=== PATIENT | female | born 1975 | race Caucasian/White ===

== ENCOUNTER 2024-08-16 18:48 | Inpatient (IN) | payer BC ==
[2024-08-16 19:47] LABS: Basophils % (A) 0 %; Eosinophils # (A) 0.1 k/uL (0-0.7); Eosinophils % (A) 1 %; HCT 40.1 % (34.0-46.0); HGB 13.2 gm/dL (11.4-16.0); Lymphocytes # (A) 1.7 k/uL (1.0-4.8); Lymphocytes % (A) 20 %; MCH 28.9 pg (25.0-35.0); MCV 87.8 fL (80.0-100.0); Mean Platelet Volume 9.7; Monocytes # (A) 0.6 k/uL (0-1.0); Monocytes % (A) 7 %; Neutrophils # (A) 5.7 k/uL (1.3-7.7); Neutrophils % (A) 69 %; Platelet Count 226 k/uL (150-450); RBC 4.56 m/uL (3.80-5.40); RDW 12.2 % (11.5-15.5); WBC 8.3 k/uL (3.8-10.6)
[2024-08-16 19:59] LABS: ALT 13 U/L (4-34); AST 19 U/L (14-36); African American GFR (CKD) >90 (>60 ml/min/1.73 sqM); Albumin 4.3 g/dL (3.5-5.0); Alkaline Phosphatase 51 U/L (38-126); Anion Gap 8 mmol/L; Blood Urea Nitrogen 12 mg/dL (7-17); Calcium 9.3 mg/dL (8.4-10.2); Carbon Dioxide 27 mmol/L (22-30); Chloride 102 mmol/L (98-107); Glucose 89 mg/dL (74-99); Non-African American GFR(CKD) >90 (>60 ml/min/1.73 sqM); Potassium 4.3 mmol/L (3.5-5.1); Sodium 137 mmol/L (137-145); Total Bilirubin 1.7 mg/dL (0.2-1.3); Total Protein 7.3 g/dL (6.3-8.2)
--- NOTE | 2024-08-16 20:17 | ED ---
Nausea/Vomiting/Diarrhea HPI - General Source: patient, family, RN notes reviewed Mode of arrival: wheelchair Limitations: no limitations <Jane Milton - Last Filed: 08/16/24 23:58> <Mary Lynch - Last Filed: 08/18/24 03:56> - General Chief complaint: Nausea/Vomiting/Diarrhea Stated complaint: vomiting, dizziness, abdominal pain Time Seen by Provider: 08/16/24 19:40 - History of Present Illness Initial comments: 49-year-old female with a history of hypothyroidism presented to emergency department for chief complaint of nausea, vomiting, and generalized not feeling well over the past 4 to 5 days. She denies emesis, urinary bowel habit changes. Admits to epigastric abdominal discomfort prior to emesis. Denies fevers, chills, cough, rhinorrhea, congestion. Endorses heart palpitations and intermittent difficulty in breathing. Patient states that she was evaluated yesterday at [facility] where she was discharged home in stable condition. Of note, patient recently discontinued taking SSRI medication, Prozac, on Thursday with concern that this medication may have been causing her symptoms. previous cholecystectomy (Jane Milton) - Related Data Home Medications Medication Instructions Recorded Confirmed FLUoxetine HCL [PROzac] 20 mg PO DAILY 08/17/24 08/17/24 Levothyroxine Sodium [Synthroid] 112 mcg PO DAILY 08/17/24 08/17/24 Allergies Allergy/AdvReac Type Severity Reaction Status Date / Time codeine Allergy Nausea & Verified 08/17/24 06:50 Vomiting Review of Systems ROS Other: All systems not noted in ROS Statement are negative. <Jane Milton - Last Filed: 08/16/24 23:58> ROS Other: All systems not noted in ROS Statement are negative. <Mary Lynch - Last Filed: 08/18/24 03:56> ROS Statement: Those systems with pertinent positive or pertinent negative responses have been documented in the HPI. Past Medical History Past Medical History: GERD/Reflux, Thyroid Disorder Additional Past Medical History / Comment(s): Aide's, Past Surgical History: Section, Cholecystectomy Additional Past Surgical History / Comment(s): neck surgery Past Psychological History: No Psychological Hx Reported Smoking Status: Never smoker Past Alcohol Use History: None Reported Past Drug Use History: None Reported <Jane Milton - Last Filed: 08/16/24 23:58> General Exam Limitations: no limitations General appearance: alert, in no apparent distress Neck exam: Present: normal inspection. Absent: tenderness, meningismus, lym phadenopathy Respiratory exam: Present: normal lung sounds bilaterally. Absent: respiratory distress, wheezes, rales, rhonchi, stridor Cardiovascular Exam: Present: regular rate, normal rhythm, normal heart sounds. Absent: systolic murmur, diastolic murmur, rubs, gallop, clicks GI/Abdominal exam: Present: soft, normal bowel sounds. Absent: distended, tenderness, guarding, rebound, rigid Extremities exam: Present: normal inspection, full ROM, normal capillary refill. Absent: tenderness, pedal edema, joint swelling, calf tenderness Back exam: Present: normal inspection. Absent: CVA tenderness (R), CVA tenderness (L) <Jane Milton - Last Filed: 08/16/24 23:58> Course <Jane Milton - Last Filed: 08/16/24 23:58> Vital Signs 08/16/24 18:51 Temperature 97.9 F Pulse Rate 61 Respiratory 18 Rate Blood Pressure 156/84 O2 Sat by Pulse 100 Oximetry - Reevaluation(s) Reevaluation #1: In reevaluation after I was informed by nursing staff the patient refused pain medication. She is laying on her side resting comfortably. Discussed with patient and inquired why she refused pain medication. She states that she felt like she had hunger pains and is still refusing pain medication. Abdominal examination complete is unremarkable. In a send patient states that she is concerned that she has thoughts today of wanting to harm herself. She is currently endorsing suicidal ideation. Denies homicidal ideation. Denies aud itory visual hallucinations. Patient has been medically cleared for EPS evaluation. 08/16/24 22:50 (Jane Milton) Medical Decision Making - Lab Data Result diagrams: 08/16/24 19:37 08/16/24 19:37 <Jane Milton - Last Filed: 08/16/24 23:58> - Lab Data Result diagrams: 08/16/24 19:37 08/16/24 19:37 <Mary Lynch - Last Filed: 08/18/24 03:56> - Medical Decision Making Was pt. sent in by a medical professional or institution (, PA, ORTHOPEDIC CAST SPECIALIST, urgent care, hospital, or fci...) When possible be specific @ -[No] Did you speak to anyone other than the patient for history (EMS, parent, family, police, friend...)? What history was obtained from this source @ -[No] Did you review nursing and triage notes (agree or disagree)? Why? @ -[I reviewed and agree with nursing and triage notes] Were old charts reviewed (outside hosp., previous admission, EMS record, old EKG, old radiological studies, urgent care reports/EKG's, fci records)? Report findings @ -[No old charts were reviewed] Differential Diagnosis (chest pain, altered mental status, abdominal pain women, abdominal pain men, vaginal bleeding, weakness, fever, dyspnea, syncope, headache, dizziness, GI bleed, back pain, seizure, CVA, palpatations, mental health, musculoskeletal)? @ -Differential Weakness: Hypoglycemia, shock, sepsis, hyponatremia, anemia, infection, VA, ETOH, adverse medicine reaction, overdose, stroke, this is not meant to be an all-inclusive list. EKG interpreted by me (3pts min.). @ -completed at X-rays interpreted by me (1pt min.). @ -[None done] CT interpreted by me (1pt min.). @ -[None done] U/S interpreted by me (1pt. min.). @ -[None done] What testing was considered but not performed or refused? (CT, X-rays, U/S, labs)? Why? @ -[None] What meds were considered but not given or refused? Why? @ -[None] Did you discuss the management of the patient with other professionals (professionals i.e. , CINDA, ORTHOPEDIC CAST SPECIALIST, lab, RT, psych nurse, social work supervisor, distribution clerk, teacher, affirmative action officer, pillowcase turner)? Give summary @ -[No] Was smoking cessation discussed for >3mins.? @ -[No] Was critical care preformed (if so, how long)? @ -[No] Were there social determinants of health that impacted care today? How? (Homelessness, low income, unemployed, alcoholism, drug addiction, trans portation, low edu. Level, literacy, decrease access to med. care, mcc, rehab)? @ -[No] Was there de-escalation of care discussed even if they declined (Discuss DNR or withdrawal of care, Hospice)? DNR status @ -[No] What co-morbidities impacted this encounter? (DM, HTN, Smoking, COPD, CAD, Cancer, CVA, ARF, Chemo, Hep., AIDS, mental health diagnosis, sleep apnea, morbid obesity)? @ -[None] Was patient admitted / discharged? Hospital course, mention meds given and route, prescriptions, significant lab abnormalities, going to OR and other pertinent info. @ -49-year-old female presenting with nausea, vomiting, or palpitations. On arrival patient is resting comfortably. Vitals are stable. She is provided with IV fluids and dose of Zofran for nausea. lab testing including CBC, CMP, coagulation, troponin, D-dimer, urinalysis unremarkable. hCG negative. TSH within normal. I was alerted by nursing staff that patient was still experiencing nausea provided with dose of Reglan. On reevaluation, patient is endorsing suicidal ideation. She is clear for EPS evaluation. patient is signed out to Mary Lynch PA-C pending EPS evaluation and disposition. Undiagnosed new problem with uncertain prognosis? @ -[No] Drug Therapy requiring intensive monitoring for toxicity (Heparin, Nitro, Insulin, Cardizem)? @ -[No] Were any procedures done? @ -[No] Diagnosis/symptom? @ -[default] Acute, or Chronic, or Acute on Chronic? @ -[default] Uncomplicated (without systemic symptoms) or Complicated (systemic symptoms)? @ -[default] Side effects of treatment? @ -[No] Exacerbation, Progression, or Severe Exacerbation? @ -[No] Poses a threat to life or bodily function? How? (Chest pain, USA, VA, pneumonia, PE, COPD, DKA, ARF, appy, cholecystitis, CVA, Diverticulitis, Homicidal, Suicidal, threat to staff... and all critical care pts) @ -[No] (Jane Milton) 49-year-old female signed out to me by Jane Milton PA-C. Patient was evaluated by EPS. She expressed suicidal ideation with plan. Patient will be admitted for psychiatric care. Diagnosis/symptom? @Suicidal ideation Acute, or Chronic, or Acute on Chronic? @Acute Uncomplicated (without systemic symptoms) or Complicated (systemic symptoms)? @Complicated Side effects of treatment? @None Exacerbation, Progression, or Severe Exacerbation] @No Poses a threat to life or bodily function? @Yes (Mary Lynch) - Lab Data Lab Results 08/16/24 08/16/24 08/16/24 Range/Units 19:37 19:37 19:37 WBC 8.3 (3.8-10.6) k/uL RBC 4.56 (3.80-5.40) m/uL Hgb 13.2 (11.4-16.0) gm/dL Hct 40.1 (34.0-46.0) % MCV 87.8 (80.0-100.0) fL MCH 28.9 (25.0-35.0) pg MCHC 33.0 (31.0-37.0) g/dL RDW 12.2 (11.5-15.5) % Plt Count 226 (150-450) k/uL MPV 9.7 Neutrophils % 69 % Lymphocytes % 20 % Monocytes % 7 % Eosinophils % 1 % Basophils % 0 % Neutrophils # 5.7 (1.3-7.7) k/uL Lymphocytes # 1.7 (1.0-4.8) k/uL Monocytes # 0.6 (0-1.0) k/uL Eosinophils # 0.1 (0-0.7) k/uL Basophils # 0.0 (0-0.2) k/uL PT (10.0-12.5) sec INR (<1.2) APTT (22.0-30.0) sec D-Dimer (<0.60) mg/L FEU Sodium 137 (137-145) mmol/L Potassium 4.3 (3.5-5.1) mmol/L Chloride 102 (98-107) mmol/L Carbon Dioxide 27 (22-30) mmol/L Anion Gap 8 mmol/L BUN 12 (7-17) mg/dL Creatinine 0.64 (0.52-1.04) mg/dL Est GFR (CKD-EPI)AfAm >90 (>60 ml/min/1.73 sqM) Est GFR (CKD-EPI)NonAf >90 (>60 ml/min/1.73 sqM) Glucose 89 (74-99) mg/dL Calcium 9.3 (8.4-10.2) mg/dL Total Bilirubin 1.7 H (0.2-1.3) mg/dL AST 19 (14-36) U/L ALT 13 (4-34) U/L Alkaline Phosphatase 51 (38-126) U/L Troponin I (0.000-0.034) ng/mL Total Protein 7.3 (6.3-8.2) g/dL Albumin 4.3 (3.5-5.0) g/dL Amylase 67 (30-110) U/L Lipase 70 (23-300) U/L TSH (0.465-4.680) mIU/L Urine Color Urine Appearance (Clear) Urine pH (5.0-8.0) Ur Specific [place] (1.001-1.035) Urine Protein (Negative) Urine Glucose (UA) (Negative) Urine Ketones (Negative) Urine Blood (Negative) Urine Nitrite (Negative) Urine Bilirubin (Negative) Urine Urobilinogen (<2.0) mg/dL Ur Leukocyte Esterase (Negative) Urine RBC (0-5) /hpf Urine WBC (0-5) /hpf Ur Squamous Epith Cells (0-4) /hpf Urine Bacteria (None) /hpf Urine Mucus (None) /hpf Urine HCG, Qual (Not Detectd) Urine Opiates Screen (NotDetected) Ur Oxycodone Screen (NotDetected) Urine Methadone Screen (NotDetected) Ur Barbiturates Screen (NotDetected) U Tricyclic Antidepress (NotDetected) Ur Phencyclidine Scrn (NotDetected) Ur Amphetamines Screen (NotDetected) U Methamphetamines Scrn (NotDetected) U Benzodiazepines Scrn (NotDetected) Urine Cocaine Screen (NotDetected) U Marijuana (THC) Screen (NotDetected) SARS-CoV-2 (PCR) (Not Detectd) 08/16/24 08/16/24 08/16/24 Range/Units 19:37 20:23 20:23 WBC (3.8-10.6) k/uL RBC (3.80-5.40) m/uL Hgb (11.4-16.0) gm/dL Hct (34.0-46.0) % MCV (80.0-100.0) fL MCH (25.0-35.0) pg MCHC (31.0-37.0) g/dL RDW (11.5-15.5) % Plt Count (150-450) k/uL MPV Neutrophils % % Lymphocytes % % Monocytes % % Eosinophils % % Basophils % % Neutrophils # (1.3-7.7) k/uL Lymphocytes # (1.0-4.8) k/uL Monocytes # (0-1.0) k/uL Eosinophils # (0-0.7) k/uL Basophils # (0-0.2) k/uL PT (10.0-12.5) sec INR (<1.2) APTT (22.0-30.0) sec D-Dimer (<0.60) mg/L FEU Sodium (137-145) mmol/L Potassium (3.5-5.1) mmol/L Chloride (98-107) mmol/L Carbon Dioxide (22-30) mmol/L Anion Gap mmol/L BUN (7-17) mg/dL Creatinine (0.52-1.04) mg/dL Est GFR (CKD-EPI)AfAm (>60 ml/min/1.73 sqM) Est GFR (CKD-EPI)NonAf (>60 ml/min/1.73 sqM) Glucose (74-99) mg/dL Calcium (8.4-10.2) mg/dL Total Bilirubin (0.2-1.3) mg/dL AST (14-36) U/L ALT (4-34) U/L Alkaline Phosphatase (38-126) U/L Troponin I (0.000-0.034) ng/mL Total Protein (6.3-8.2) g/dL Albumin (3.5-5.0) g/dL Amylase (30-110) U/L Lipase (23-300) U/L TSH 4.640 (0.465-4.680) mIU/L Urine Color Light Yellow Urine Appearance Clear (Clear) Urine pH 6.0 (5.0-8.0) Ur Specific [place] 1.015 (1.001-1.035) Urine Protein Negative (Negative) Urine Glucose (UA) Negative (Negative) Urine Ketones 1+ H (Negative) Urine Blood Trace H (Negative) Urine Nitrite Negative (Negative) Urine Bilirubin Negative (Negative) Urine Urobilinogen <2.0 (<2.0) mg/dL Ur Leukocyte Esterase Negative (Negative) Urine RBC 1 (0-5) /hpf Urine WBC 2 (0-5) /hpf Ur Squamous Epith Cells 2 (0-4) /hpf Urine Bacteria Rare H (None) /hpf Urine Mucus Few H (None) /hpf Urine HCG, Qual Not Detected (Not Detectd) Urine Opiates Screen (NotDetected) Ur Oxycodone Screen (NotDetected) Urine Methadone Screen (NotDetected) Ur Barbiturates Screen (NotDetected) U Tricyclic Antidepress (NotDetected) Ur Phencyclidine Scrn (NotDetected) Ur Amphetamines Screen (NotDetected) U Methamphetamines Scrn (NotDetected) U Benzodiazepines Scrn (NotDetected) Urine Cocaine Screen (NotDetected) U Marijuana (THC) Screen (NotDetected) SARS-CoV-2 (PCR) (Not Detectd) 08/16/24 08/16/24 08/16/24 Range/Units 20:23 20:39 20:39 WBC (3.8-10.6) k/uL RBC (3.80-5.40) m/uL Hgb (11.4-16.0) gm/dL Hct (34.0-46.0) % MCV (80.0-100.0) fL MCH (25.0-35.0) pg MCHC (31.0-37.0) g/dL RDW (11.5-15.5) % Plt Count (150-450) k/uL MPV Neutrophils % % Lymphocytes % % Monocytes % % Eosinophils % % Basophils % % Neutrophils # (1.3-7.7) k/uL Lymphocytes # (1.0-4.8) k/uL Monocytes # (0-1.0) k/uL Eosinophils # (0-0.7) k/uL Basophils # (0-0.2) k/uL PT 12.7 H (10.0-12.5) sec INR 1.2 H (<1.2) APTT 24.1 (22.0-30.0) sec D-Dimer <0.17 (<0.60) mg/L FEU Sodium (137-145) mmol/L Potassium (3.5-5.1) mmol/L Chloride (98-107) mmol/L Carbon Dioxide (22-30) mmol/L Anion Gap mmol/L BUN (7-17) mg/dL Creatinine (0.52-1.04) mg/dL Est GFR (CKD-EPI)AfAm (>60 ml/min/1.73 sqM) Est GFR (CKD-EPI)NonAf (>60 ml/min/1.73 sqM) Glucose (74-99) mg/dL Calcium (8.4-10.2) mg/dL Total Bilirubin (0.2-1.3) mg/dL AST (14-36) U/L ALT (4-34) U/L Alkaline Phosphatase (38-126) U/L Troponin I <0.012 (0.000-0.034) ng/mL Total Protein (6.3-8.2) g/dL Albumin (3.5-5.0) g/dL Amylase (30-110) U/L Lipase (23-300) U/L TSH (0.465-4.680) mIU/L Urine Color Urine Appearance (Clear) Urine pH (5.0-8.0) Ur Specific [place] (1.001-1.035) Urine Protein (Negative) Urine Glucose (UA) (Negative) Urine Ketones (Negative) Urine Blood (Negative) Urine Nitrite (Negative) Urine Bilirubin (Negative) Urine Urobilinogen (<2.0) mg/dL Ur Leukocyte Esterase (Negative) Urine RBC (0-5) /hpf Urine WBC (0-5) /hpf Ur Squamous Epith Cells (0-4) /hpf Urine Bacteria (None) /hpf Urine Mucus (None) /hpf Urine HCG, Qual (Not Detectd) Urine Opiates Screen Not Detected (NotDetected) Ur Oxycodone Screen Not Detected (NotDetected) Urine Methadone Screen Not Detected (NotDetected) Ur Barbiturates Screen Not Detected (NotDetected) U Tricyclic Antidepress Not Detected (NotDetected) Ur Phencyclidine Scrn Not Detected (NotDetected) Ur Amphetamines Screen Not Detected (NotDetected) U Methamphetamines Scrn Not Detected (NotDetected) U Benzodiazepines Scrn Not Detected (NotDetected) Urine Cocaine Screen Not Detected (NotDetected) U Marijuana (THC) Screen Detected H (NotDetected) SARS-CoV-2 (PCR) (Not Detectd) 08/17/24 Range/Units 04:11 WBC (3.8-10.6) k/uL RBC (3.80-5.40) m/uL Hgb (11.4-16.0) gm/dL Hct (34.0-46.0) % MCV (80.0-100.0) fL MCH (25.0-35.0) pg MCHC (31.0-37.0) g/dL RDW (11.5-15.5) % Plt Count (150-450) k/uL MPV Neutrophils % % Lymphocytes % % Monocytes % % Eosinophils % % Basophils % % Neutrophils # (1.3-7.7) k/uL Lymphocytes # (1.0-4.8) k/uL Monocytes # (0-1.0) k/uL Eosinophils # (0-0.7) k/uL Basophils # (0-0.2) k/uL PT (10.0-12.5) sec INR (<1.2) APTT (22.0-30.0) sec D-Dimer (<0.60) mg/L FEU Sodium (137-145) mmol/L Potassium (3.5-5.1) mmol/L Chloride (98-107) mmol/L Carbon Dioxide (22-30) mmol/L Anion Gap mmol/L BUN (7-17) mg/dL Creatinine (0.52-1.04) mg/dL Est GFR (CKD-EPI)AfAm (>60 ml/min/1.73 sqM) Est GFR (CKD-EPI)NonAf (>60 ml/min/1.73 sqM) Glucose (74-99) mg/dL Calcium (8.4-10.2) mg/dL Total Bilirubin (0.2-1.3) mg/dL AST (14-36) U/L ALT (4-34) U/L Alkaline Phosphatase (38-126) U/L Troponin I (0.000-0.034) ng/mL Total Protein (6.3-8.2) g/dL Albumin (3.5-5.0) g/dL Amylase (30-110) U/L Lipase (23-300) U/L TSH (0.465-4.680) mIU/L Urine Color Urine Appearance (Clear) Urine pH (5.0-8.0) Ur Specific [place] (1.001-1.035) Urine Protein (Negative) Urine Glucose (UA) (Negative) Urine Ketones (Negative) Urine Blood (Negative) Urine Nitrite (Negative) Urine Bilirubin (Negative) Urine Urobilinogen (<2.0) mg/dL Ur Leukocyte Esterase (Negative) Urine RBC (0-5) /hpf Urine WBC (0-5) /hpf Ur Squamous Epith Cells (0-4) /hpf Urine Bacteria (None) /hpf Urine Mucus (None) /hpf Urine HCG, Qual (Not Detectd) Urine Opiates Screen (NotDetected) Ur Oxycodone Screen (NotDetected) Urine Methadone Screen (NotDetected) Ur Barbiturates Screen (NotDetected) U Tricyclic Antidepress (NotDetected) Ur Phencyclidine Scrn (NotDetected) Ur Amphetamines Screen (NotDetected) U Methamphetamines Scrn (NotDetected) U Benzodiazepines Scrn (NotDetected) Urine Cocaine Screen (NotDetected) U Marijuana (THC) Screen (NotDetected) SARS-CoV-2 (PCR) Not Detected (Not Detectd) Disposition <Jane Milton - Last Filed: 08/16/24 23:58> <Mary Lynch - Last Filed: 08/18/24 03:56> Clinical Impression: Suicidal ideation Disposition: TRANSFER TO PSYCH HOSP/UNIT Condition: Stable
[2024-08-16 20:41] LABS: Appearance,Urine Clear (Clear); Bacteria,Urine Rare /hpf; Bilirubin,Urine Negative (Negative); Blood,Urine Trace (Negative); Color,Urine Light Yellow; Glucose,Urine (UA) Negative (Negative); Ketones,Urine 1+ (Negative); Leukocyte Esterase,Urine Negative (Negative); Mucus,Urine Few /hpf; Nitrite,Urine Negative (Negative); Protein,Urine Negative (Negative); RBC,Urine 1 /hpf (0-5); Specific Gravity,Urine 1.015 (1.001-1.035); Squamous Epithelial Cell,Urine 2 /hpf (0-4); Urobilinogen,Urine <2.0 mg/dL (<2.0); WBC,Urine 2 /hpf (0-5)
[2024-08-16] MEDS: ONDANSETRON 4 MG/2 ML VIAL IVP STA (20:41)
[2024-08-16] MEDS: SODIUM CHLORIDE 0.9% 1,000 ML IV STA (20:43)
[2024-08-16 20:56] LABS: Amylase 67 U/L (30-110); Lipase 70 U/L (23-300)
[2024-08-16 21:04] LABS: INR 1.2 (<1.2); Partial Thromboplastin Time 24.1 sec (22.0-30.0); Prothrombin Time 12.7 sec (10.0-12.5)
[2024-08-16] MEDS: METOCLOPRAMIDE 5 MG/ML 2 ML VIAL IVP STA (21:37)
[2024-08-16] MEDS: KETOROLAC 15 MG/ML 1 ML VIAL IVP STA (22:27)
[2024-08-17 02:15] LABS: Amphetamine Screen,Urine Not Detected (NotDetected); Barbiturate Screen,Urine Not Detected (NotDetected); Benzodiazepines Screen,Urine Not Detected (NotDetected); Cocaine Screen,Urine Not Detected (NotDetected); Methadone Screen, Urine Not Detected (NotDetected); Opiate Screen,Urine Not Detected (NotDetected); Oxycodone Screen, Urine Not Detected (NotDetected); Phencyclidine Screen,Urine Not Detected (NotDetected); Tricyclic Antidepressant,Urine Not Detected (NotDetected); Urn Cannabinoid Scrn Detected (NotDetected)
[2024-08-17] MEDS: ONDANSETRON 4 MG/2 ML VIAL IVP STA (02:20)
[2024-08-17] MEDS: METOCLOPRAMIDE 10 MG TAB PO STA (05:07)
[2024-08-17] MEDS ORDERED: ACETAMINOPHEN TAB 325 MG TAB PO PRN (06:13)
[2024-08-17] MEDS ORDERED: IBUPROFEN 600 MG TAB PO PRN (06:13)
[2024-08-17] MEDS ORDERED: OLANZapine 10 MG TAB PO PRN (06:13)
[2024-08-17] MEDS ORDERED: MAGNESIUM HYDROXIDE 2,400 MG/30 ML CUP PO PRN (06:13)
[2024-08-17] MEDS ORDERED: hydrOXYzine HCL 50 MG/ML 1 ML VIAL IM PRN (06:13)
[2024-08-17] MEDS ORDERED: OLANZapine 10 MG VIAL IM PRN (06:13)
[2024-08-17] MEDS ORDERED: hydrOXYzine pamoate 25 MG CAP PO PRN (06:16)
[2024-08-17] MEDS: LEVOTHYROXINE 112 MCG TAB PO SCH (06:45)
[2024-08-17] MEDS ORDERED: ONDANSETRON ODT 4 MG TAB PO PRN (07:26)
[2024-08-17] MEDS: MAG HYDROX/AL HYDROX/SIMETH 355 ML BOTTLE PO PRN (09:23)
[2024-08-17] MEDS ORDERED: OLANZapine 5 MG TAB PO PRN (11:51)
--- NOTE | 2024-08-17 12:40 | P.HP ---
Psychiatric H&P - . H&P Date: 08/17/24 History & Physical: Allergies Allergy/AdvReac Type Severity Reaction Status Date / Time codeine Allergy Nausea & Verified 08/17/24 06:50 Vomiting Vital Signs Temp 98.6 F 08/17/24 09:00 Pulse 77 08/17/24 09:00 Resp 16 08/17/24 09:00 BP 145/69 08/17/24 09:00 Pulse Ox 98 08/17/24 06:58 FiO2 Intake & Output 08/16/24 08/17/24 08/17/24 18:59 06:59 18:59 Weight 77.111 kg 78.046 kg Laboratory Last Values WBC 8.3 k/uL (3.8-10.6) 08/16/24 19:37 RBC 4.56 m/uL (3.80-5.40) 08/16/24 19:37 Hgb 13.2 gm/dL (11.4-16.0) 08/16/24 19:37 Hct 40.1 % (34.0-46.0) 08/16/24 19:37 MCV 87.8 fL (80.0-100.0) 08/16/24 19:37 MCH 28.9 pg (25.0-35.0) 08/16/24 19:37 MCHC 33.0 g/dL (31.0-37.0) 08/16/24 19:37 RDW 12.2 % (11.5-15.5) 08/16/24 19:37 Plt Count 226 k/uL (150-450) 08/16/24 19:37 MPV 9.7 08/16/24 19:37 Neutrophils % 69 % 08/16/24 19:37 Lymphocytes % 20 % 08/16/24 19:37 Monocytes % 7 % 08/16/24 19:37 Eosinophils % 1 % 08/16/24 19:37 Basophils % 0 % 08/16/24 19:37 Neutrophils # 5.7 k/uL (1.3-7.7) 08/16/24 19:37 Lymphocytes # 1.7 k/uL (1.0-4.8) 08/16/24 19:37 Monocytes # 0.6 k/uL (0-1.0) 08/16/24 19:37 Eosinophils # 0.1 k/uL (0-0.7) 08/16/24 19:37 Basophils # 0.0 k/uL (0-0.2) 08/16/24 19:37 PT 12.7 sec (10.0-12.5) H 08/16/24 20:39 INR 1.2 (<1.2) H 08/16/24 20:39 APTT 24.1 sec (22.0-30.0) 08/16/24 20:39 D-Dimer <0.17 mg/L FEU (<0.60) 08/16/24 20:39 Sodium 137 mmol/L (137-145) 08/16/24 19:37 Potassium 4.3 mmol/L (3.5-5.1) 08/16/24 19:37 Chloride 102 mmol/L (98-107) 08/16/24 19:37 Carbon Dioxide 27 mmol/L (22-30) 08/16/24 19:37 Anion Gap 8 mmol/L 08/16/24 19:37 BUN 12 mg/dL (7-17) 08/16/24 19:37 Creatinine 0.64 mg/dL (0.52-1.04) 08/16/24 19:37 Est GFR (CKD-EPI)AfAm >90 (>60 ml/min/1.73 sqM) 08/16/24 19:37 Est GFR (CKD-EPI)NonAf >90 (>60 ml/min/1.73 sqM) 08/16/24 19:37 Glucose 89 mg/dL (74-99) 08/16/24 19:37 Calcium 9.3 mg/dL (8.4-10.2) 08/16/24 19:37 Total Bilirubin 1.7 mg/dL (0.2-1.3) H 08/16/24 19:37 AST 19 U/L (14-36) 08/16/24 19:37 ALT 13 U/L (4-34) 08/16/24 19:37 Alkaline Phosphatase 51 U/L (38-126) 08/16/24 19:37 Troponin I <0.012 ng/mL (0.000-0.034) 08/16/24 20:39 Total Protein 7.3 g/dL (6.3-8.2) 08/16/24 19:37 Albumin 4.3 g/dL (3.5-5.0) 08/16/24 19:37 Amylase 67 U/L (30-110) 08/16/24 19:37 Lipase 70 U/L (23-300) 08/16/24 19:37 TSH 4.640 mIU/L (0.465-4.680) 08/16/24 19:37 Urine Color Light Yellow 08/16/24 20:23 Urine Appearance Clear (Clear) 08/16/24 20: Urine pH 6.0 (5.0-8.0) 08/16/24 20:23 Ur Specific [place] 1.015 (1.001-1.035) 08/16/24 20: Urine Protein Negative (Negative) 08/16/24: Urine Glucose (UA) Negative (Negative) 08/16/24 20: Urine Ketones 1+ (Negative) H 08/16/24 20: Urine Blood Trace (Negative) H 08/16/24 20: Urine Nitrite Negative (Negative) 08/16/24: Urine Bilirubin Negative (Negative) 08/16/24 20: Urine Urobilinogen <2.0 mg/dL (<2.0) 08/16/24 20:23 Ur Leukocyte Esterase Negative (Negative) 08/16/24 20:23 Urine RBC 1 /hpf (0-5) 08/16/24 20:23 Urine WBC 2 /hpf (0-5) 08/16/24 20:23 Ur Squamous Epith Cells 2 /hpf (0-4) 08/16/24 20:23 Urine Bacteria Rare /hpf (None) H 08/16/24 20:23 Urine Mucus Few /hpf (None) H 08/16/24 20:23 Urine HCG, Qual Not Detected (Not Detectd) 08/16/24 20:23 Urine Opiates Screen Not Detected (NotDetected) 08/16/24 20:23 Ur Oxycodone Screen Not Detected (NotDetected) 08/16/24 20:23 Urine Methadone Screen Not Detected (NotDetected) 08/16/24 20:23 Ur Barbiturates Screen Not Detected (NotDetected) 08/16/24 20: U Tricyclic Antidepress Not Detected (NotDetected) 08/16/24 20:23 Ur Phencyclidine Scrn Not Detected (NotDetected) 08/16/24 20:23 Ur Amphetamines Screen Not Detected (NotDetected) 08/16/24 20:23 U Methamphetamines Scrn Not Detected (NotDetected) 08/16/24 20:23 U Benzodiazepines Scrn Not Detected (NotDetected) 08/16/24 20:23 Urine Cocaine Screen Not Detected (NotDetected) 08/16/24 20:23 U Marijuana (THC) Screen Detected (NotDetected) H 08/16/24 20:23 SARS-CoV-2 (PCR) Not Detected (Not Detectd) 08/17/24 04:11 08/17/24 11:34 IDENTIFYING DATA: Patient is a 49-year-old female, currently she has 1 kid she lives with her family in a house, 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 Upon being medically cleared and discharged, per [facility] EMR pt states she is having suicidal thoughts. Pt and spouse are in room for Assessment, per pt's request. Pt is currently stating to this report writer she is having suicidal thoughts /c a plan to shoot herself /c a handgun. Pt and spouse agree that pt has access to firearms in their home. Pt denies HI, denies hallucinations and no delusional thoughts verbalized. Pt states she used to take Celexa, then her DIORAMA MODEL MAKER prescribed pt Prozac 2 weeks ago. Pt states "I haven't felt good since I've been taking it. So I quit taking it Thursday. Thursday night I had bad heartburn. I went to work Thursday and had burning really bad in my chest and I passed out. I was taken by ambulance to [facility] and they treated me and discharged me. Today I was feeling worse. The bad thoughts didn't happen un til today; they are hurting myself /c a handgun." Pt's spouse states pt told him and her DIORAMA MODEL MAKER that she was having suicidal thoughts. Pt states she cannot contract for safety if discharged from [facility]." Patient was seen today agreeable to speak in the office today. She claims that she went to her REINSURANCE CLAIMS ANALYST about 2 weeks ago claims that she used to be on Celexa for several years however stopped taking about 3 years ago. Claims that she went to get restarted back on an SSRI she was started on Prozac by her doctor. Claims that she took it for a few days and states that she did not tolerate it very well. Claims that she was nauseous vomiting. States that she also felt lightheaded and dizzy. States that she was also having burning in her chest, claims that she also was having "bad thoughts" of committing suicide. She claims that she was having thoughts of shooting herself for the past couple of days. She was fairly tearful when describing this. States that she is dealing with stressor of her son leaving for [email or web address] soon and going to [place]. Claims that she is worried about him. Claims that her sleep and appetite are poor. Denies any paranoid thoughts at this time. Patient denies any current suicidal or homicidal ideations intent or plan. At this time patient denies any auditory or visual hallucinations. Patient denies any flight of ideas racing thoughts and increased in goal directed behavior. Patient admits to using marijuana pen, smokes it nightly. Denies any other recreational drug PAST PSYCHIATRIC HISTORY: Patient has a history of depression/anxiety. Claims that she was previously on Celexa for 15 years, stopped it about 3 years ago, recently started on Prozac 20 mg daily however stopped. Patient denies any previous psychiatric hospitalizations. Patient denies any psychiatric outpatient follow-up. Patient denies any history of suicide attempts in the past. PMH: as per ER note ALLERGIES: as per EMR CHEMICAL DEPENDENCY HISTORY: as per HPI FAMILY PSYCHIATRIC/SUBSTANCE USE HISTORY: She claims that her brother has bipolar disorder SOCIAL HISTORY: Patient was born and raised in [place] and also [facility]. Claims that she completed high school did some college. 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 She lives with her 1 son and at home in a house. She denies any legal history. MENTAL STATUS EXAM: General Appearance: Patient appears to be stated age is alert, directable, and attempts to cooperate. Patient appears to have poor hygiene and grooming. Behavior: Patient is seated without any agitated behavior. Attempts to cooperate Speech: Patient's speech is fluent and nonpressured. Mood/Affect: Patient reports their mood is depressed and anxious, affect is congruent and constricted. Tearful at times Suicidality/Homicidality: Patient denies having any homicidal ideation intent or plan. Denies any suicidal ideations intent or plan Perceptions: Patient denies any visual hallucinations and denies any auditory hallucinations Though content/process: There is no evidence of any delusional thought content and thought process is linear and goal-directed. Fairly somatic Memory and concentration: AOX3, grossly intact for the purposes of this session. Can spell "WORLD" backwards Judgment and insight: Poor STRENGTHS/WEAKNESSES: strength is that patient is resilient. Weakness is that patient has poor judgment and is impulsive INTELLECT: Average IMPRESSIONS: Suicidal ideations Major depressive disorder without psychotic features Anxiety disorder unspecified Cannabis use disorder mild Adverse reaction to medication PLAN: -Patient is admitted under voluntary status to MHU for stabilization of psychiatric symptoms and safety. Patient has signed adult voluntary form and has signed medication consent and is placed in patient's chart. -Medications : Cymbalta 20 mg daily for mood/anxiety, Remeron 7.5 mg nightly for mood/insomnia, Zofran as needed for nausea -Ativan and Haldol PRN for agitation/aggression -Patient was counselled on substance abuse and desired to cut back on use. -Patient was informed of the risks, benefits and side effects of the medications and patient verbally consented to taking the medications. Patient signed med consent form and was placed in chart. Patient was offered medication information and accepted it -Internal Medicine consult to perform medical evaluation and physical. -NRT -not needed as patient does not smoke -SW on board for discharge planning. Encourage patient to participate in groups to work on coping skills. 08/17/24 12:35
[2024-08-17] MEDS: DULoxetine HCL 20 MG CAPSULE.DR PO SCH (13:11)
[2024-08-17] MEDS: ONDANSETRON ODT 8 MG TAB.RAPDIS PO PRN (13:11)
[2024-08-17] MEDS: MIRTAZAPINE 15 MG TAB PO SCH (20:32)
--- NOTE | 2024-08-17 22:05 | P.CONS ---
History of Present Illness - Reason for Consult Consult date: 08/17/24 - History of Present Illness Patient is a 49-year-old female originally presented here with symptoms of nausea, vomiting, dizziness, and abdominal pain. Patient was seen and evaluated mental health unit with MHU RN present. She noted that she abruptly discontinued her Prozac because she thought it may have been contributing to her symptoms. She was medically cleared and upon discharge she stated she was having suicidal thoughts and wanted to shoot herself. During this interview she has denied any suicidal or homicidal ideation. Patient admits to cannabis use. No acute physical complaints. Pertinent positives and negatives as discussed above, a complete review of systems was performed and all other systems are negative. Vitals: Signs Reviewed Physical Exam: General: nontoxic, no distress, appears at stated age Derm: warm, dry, intact Head: atraumatic, normocephalic, symmetric Eyes: EOMI, anicteric sclera Mouth: no lip lesion, mucus membranes moist Cardiovascular: S1 S2 reg, no murmur, rubs, or gallops Lungs: CTA bilateral, no rhonchi, no rales, no accessory muscle use Abdominal: soft, non-tender to palpataion, no appreciable organomegaly Extremities: no gross muscle atrophy, no edema, no contractures Neuro: Alert, Oriented, CNII-XII grossly intact, gait normal Psych: well appearing, appropriate affect Assessment and Plan: Hypothyroidism Continue with Synthroid 112 mcg PO @0630 Cannabis use disorder Counseled patient on importance of cessation Suicidal ideation Major depressive disorder without psychotic features Anxiety disorder unspecified Defer management to primary psychiatric service Thank you for this consultation. We will continue to peripherally follow. Please do not hesitate to ask any further questions. Jay Jay Villanueva MD PGY-1 IM Dictation was produced using Narrative dictation software. please excuse any grammatical, word or spelling errors. Past Medical History Past Medical History: GERD/Reflux, Thyroid Disorder Additional Past Medical History / Comment(s): Aide's, Past Surgical History: Section, Cholecystectomy Additional Past Surgical History / Comment(s): neck surgery Smoking Status: Never smoker Medications and Allergies Home Medications Medication Instructions Recorded Confirmed Type FLUoxetine HCL [PROzac] 20 mg PO DAILY 08/17/24 08/17/24 History Levothyroxine Sodium [Synthroid] 112 mcg PO DAILY 08/17/24 08/17/24 History Allergies Allergy/AdvReac Type Severity Reaction Status Date / Time codeine Allergy Nausea & Verified 08/17/24 06:50 Vomiting Physical Exam Vitals: Vital Signs Temp Pulse Resp BP Pulse Ox 08/17/24 09:00 98.6 F 77 16 145/69 08/17/24 06:58 97.1 F L 59 L 15 107/59 98 Intake and Output 08/17/24 08/17/24 08/17/24 06:59 14:59 22:59 Other: Weight 78.046 kg Results CBC & Chem 7: 08/16/24 19:37 08/16/24 19:37 Labs: Abnormal Lab Results - Last 24 Hours (Table) 08/16/24 08/16/24 08/16/24 Range/Units 19:37 20:23 20:23 PT (10.0-12.5) sec INR (<1.2) Total Bilirubin 1.7 H (0.2-1.3) mg/dL Urine Ketones 1+ H (Negative) Urine Blood Trace H (Negative) Urine Bacteria Rare H (None) /hpf Urine Mucus Few H (None) /hpf U Marijuana (THC) Screen Detected H (NotDetected) 08/16/24 Range/Units 20:39 PT 12.7 H (10.0-12.5) sec INR 1.2 H (<1.2) Total Bilirubin (0.2-1.3) mg/dL Urine Ketones (Negative) Urine Blood (Negative) Urine Bacteria (None) /hpf Urine Mucus (None) /hpf U Marijuana (THC) Screen (NotDetected)
--- NOTE | 2024-08-18 10:23 | P.PN ---
Progress Note - Text Progress Note Date: 08/18/24 Interval History: Patient was seen today for follow up. She claims that she was going to groups and participating. states that she feels more optimistic about her medications and treatment. Claims that she feels sorry for "doubting you" and states that she feels the medications have helped turn her mood around. Claims that she is still feeling a bit "shaky" mild anxiety at this time. Claims that she was able to sleep fairly well with the Remeron last night. Did claim to have a bit of nausea yesterday however has been taking Zofran as needed. Claims that she was visited by her yesterday who is supportive. At this time she is denying any suicidal homicidal ideations intent or plan denying any auditory or visual hallucinations. MENTAL STATUS EXAM: General Appearance: Patient appears to be stated age is alert, directable, and attempts to cooperate. Patient appears to have improving hygiene and grooming. Behavior: Patient is seated without any agitated behavior. Attempts to cooperate Speech: Patient's speech is fluent and nonpressured. Mood/Affect: Patient reports their mood is a bit anxious, improving mildly affect is congruent and improving mild Suicidality/Homicidality: Patient denies having any homicidal ideation intent or plan. Denies any suicidal ideations intent or plan Perceptions: Patient denies any visual hallucinations and denies any auditory hallucinations Though content/process: There is no evidence of any delusional thought content and thought process is linear and goal-directed. Memory and concentration: AOX3, grossly intact for the purposes of this session Judgment and insight: Poor, improving mildly IMPRESSIONS: Suicidal ideations Major depressive disorder without psychotic features Anxiety disorder unspecified Cannabis use disorder mild Adverse reaction to medication PLAN: -Patient is admitted under voluntary status to MHU for stabilization of psychiatric symptoms and safety. Patient has signed adult voluntary form and has signed medication consent and is placed in patient's chart. -Medications : Increase Cymbalta 30 mg daily for mood/anxiety, Remeron 7.5 mg nightly for mood/insomnia, Zofran as needed for nausea -Ativan and Haldol PRN for agitation/aggression -NRT -not needed as patient does not smoke -SW on board for discharge planning. Encourage patient to participate in groups to work on coping skills. Likely discharge early next week if patient is improving.
[2024-08-19] MEDS: DULoxetine HCL 30 MG CAPSULE.DR PO SCH (08:38)
--- NOTE | 2024-08-19 11:21 | P.PN ---
Progress Note - Text Progress Note Date: 08/19/24 Interval History: Patient was seen today for follow up. She claims that she was going to groups and participating. Claims that she feels a bit better today with regards to her mood and anxiety. She did take the Zofran with the Cymbalta today however states that she is not feeling nauseous. She was advised to try it without the Zofran tomorrow. Claims that she had a disruptive sleep last night due to a change in roommate and also noises in the hallway. Claims that she would like to try higher dose of Remeron. Claims that she has been eating a bit better today. At this time she is denying any suicidal homicidal ideations intent or plan denying any auditory or visual hallucinations. MENTAL STATUS EXAM: General Appearance: Patient appears to be stated age is alert, directable, and attempts to cooperate. Patient appears to have improving hygiene and grooming. Behavior: Patient is seated without any agitated behavior. Attempts to cooperate Speech: Patient's speech is fluent and nonpressured. Mood/Affect: Patient reports their mood is improving mildly affect is congruent and improving mild Suicidality/Homicidality: Patient denies having any homicidal ideation intent or plan. Denies any suicidal ideations intent or plan Perceptions: Patient denies any visual hallucinations and denies any auditory hallucinations Though content/process: There is no evidence of any delusional thought content and thought process is linear and goal-directed. Memory and concentration: AOX3, grossly intact for the purposes of this session Judgment and insight: improving mildly IMPRESSIONS: Suicidal ideations Major depressive disorder without psychotic features Anxiety disorder unspecified Cannabis use disorder mild Adverse reaction to medication PLAN: -Patient is admitted under voluntary status to MHU for stabilization of psychiatric symptoms and safety. Patient has signed adult voluntary form and has signed medication consent and is placed in patient's chart. -Medications : Cymbalta 30 mg daily for mood/anxiety, increase Remeron 15 mg nightly for mood/insomnia, Zofran as needed for nausea -Ativan and Haldol PRN for agitation/aggression -NRT - not needed as patient does not smoke -SW on board for discharge planning. Encourage patient to participate in groups to work on coping skills. Likely discharge Thursday if patient is improving. Professional Volleyball Player spoke with patient's over the phone Elmer and patient as well to discuss patient's treatment and discharge planning, questions were answered. Professional Volleyball Player also spoke about guns and weapons in the house and having them secured, they are in a safe and the combination will be changed.
[2024-08-19 16:10] VITALS: BMI 31.4
[2024-08-19] MEDS: MIRTAZAPINE 15 MG TAB PO SCH (21:13)
--- NOTE | 2024-08-20 10:26 | P.PN ---
Progress Note - Text Progress Note Date: 08/20/24 Interval history: Patient was seen in [place] [facility] and was directable and agreeable to speak with machine sign writer. Patient expressed anxiety related to her son going off into the in 2 weeks. She reports originally being discouraged with being here however she has been able to realize some benefits and that the Cymbalta appears to lessen her anxiety, no longer feeling nauseous off the Zofran today. She reports sleeping well. She anticipates discharge on Thursday. At this time patient denies any suicidal or homicidal ideations intent or plan. Denies any auditory or visual hallucinations. Patient denies any side effects from the medications and has been compliant with meds. Mental status exam: General Appearance: Patient appears to be stated age is alert, directable, and cooperative. She has fair grooming and hygiene Behavior: No agitated behavior. Patient is calm and directable Speech: Patient's speech is fluent and nonpressured. Mood/Affect: Mood is improving mildly, affect is congruent and bright, full range. Suicidality/Homicidality: Patient denies having any suicidal or homicidal ideation intent or plan. Perceptions: Patient denies any auditory or visual hallucinations. Though content/process: There is no evidence of any delusional thought content and thought process is linear and goal-directed. Memory and concentration: AOX3, grossly intact for the purposes of this session Judgment and insight: improving mildly Assessment/Plan: Continue with current diagnosis. Patient continues to meet criteria for inpatient psychiatric admission for symptom stabilization and safety. Patient will be maintained on current psychotropic medication regimen. Monitor for medication compliance and for any psychotropic medication side effects. Will continue to monitor ongoing response to treatment. Encouraged participation in milieu.
--- NOTE | 2024-08-21 10:25 | P.PN ---
Progress Note - Text Progress Note Date: 08/21/24 Interval history: Patient was seen wandering the hallways and was directable and agreeable to s peak with process description writer. Patient was bright in affect, expressing no concerns today. She states her visited her yesterday and that things were well between them. She did not take Zofran yesterday and denied any nausea. She mentions feeling better on the current cocktail of medications. Anticipating discharge for tomorrow. At this time patient denies any suicidal or homicidal ideations intent or plan. Denies any auditory or visual hallucinations. Patient denies any side effects from the medications and has been compliant with meds. Mental status exam: General Appearance: Patient appears to be stated age is alert, directable, and cooperative. She wears glasses and has fair grooming and hygiene Behavior: No agitated behavior. Patient is calm and directable Speech: Patient's speech is fluent and nonpressured. Mood/Affect: Mood is improving mildly, affect is congruent and bright, reactive Suicidality/Homicidality: Patient denies having any suicidal or homicidal ideation intent or plan. Perceptions: Patient denies any auditory or visual hallucinations. Though content/process: There is no evidence of any delusional thought content and thought process is linear and goal-directed. Memory and concentration: AOX3, grossly intact for the purposes of this session Judgment and insight: improving mildly Assessment/Plan: Continue with current diagnosis. Patient continues to meet criteria for inpatient psychiatric admission for symptom stabilization and safety. Patient will be maintained on current psychotropic medication regimen. Monitor for medication compliance and for any psychotropic medication side effects. Will continue to monitor ongoing response to treatment. Encouraged participation in milieu.
[2024-08-21 21:45] VITALS: RESP 16
[2024-08-22 08:38] VITALS: BP 130/76; PULSE 70; TEMP 98.4
--- NOTE | 2024-08-22 10:28 | P.HP ---
Psychiatric H&P - . 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 Patient presented to the hospital initially yesterday endorsing depression and suicidal thoughts to shoot herself, she was evaluated by EPS and as per note"Pt initially presents voluntary for medical symptoms of vomiting, dizziness and abdominal pain. Upon being medically cleared and discharged, per [facility] EMR pt states she is having suicidal thoughts. Pt and spouse are in room for Assessment, per pt's request. Pt is currently stating to this junior underwriter she is having suicidal thoughts /c a plan to shoot herself /c a handgun. Pt and spouse agree that pt has access to firearms in their home. Pt denies HI, denies hallucinations and no delusional thoughts verbalized. Pt states she used to take Celexa, then her AUTHOR prescribed pt Prozac 2 weeks ago. Pt states "I haven't felt good since I've been taking it. So I quit taking it Thursday. Thursday night I had bad heartburn. I went to work Thursday and had burning really bad in my chest and I passed out. I was taken by ambulance to [facility] and they treated me and discharged me. Today I was feeling worse. The bad thoughts didn't happen until today; they are hurting myself /c a handgun." Pt's spouse states pt told him and her AUTHOR that she was having suicidal thoug hts. Pt states she cannot contract for safety if discharged from ." Patient was seen today agreeable to speak in the office today. She claims that she went to her [employer] about 2 weeks ago claims that she used to be on Celexa for several years however stopped taking about 3 years ago. Claims that she went to get restarted back on an SSRI she was started on Prozac by her doctor. Claims that she took it for a few days and states that she did not tolerate it very well. Claims that she was nauseous vomiting. States that she also felt lightheaded and dizzy. States that she was also having burning in her chest, claims that she also was having "bad thoughts" of committing suicide. She claims that she was having thoughts of shooting herself for the past couple of days. She was fairly tearful when describing this. States that she is dealing with stressor of her son leaving for [employer] soon and going to [place]. Claims that she is worried about him. Claims that her sleep and appetite are poor. Denies any paranoid thoughts at this time. Patient denies any current suicidal or homicidal ideations intent or plan. At this time patient denies any auditory or visual hallucinations. Patient denies any flight of ideas racing thoughts and increased in goal directed behavior. Patient admits to using marijuana pen, smokes it nightly. Denies any other recreational drug" Hospital course: Upon admission to the unit patient was directable and agreeable to commence treatment and signed adult voluntary form. Patient was initially depressed tearful however with time and treatment patient got along well with other patients on the unit and followed unit protocol. Patient was compliant with the medications and denied any side effects throughout hospital course. Patient was started on Cymbalta increased to dose of 30 mg daily for mood/anxiety, Remeron increased to dose of 15 mg nightly for mood/insomnia, as needed Zofran for nausea. Patient spoke of her stressors and engaged in therapy both group/activity therapy. Patient was also seen by medical team for history and physical exam. Throughout the course of the hospitalization patient gradually improved with regards to mood, anxiety, suicidal thoughts, sleep and became more future oriented with improved insight and judgment. On the day of discharge patient denied any suicidal or homicidal ideations intent or plan denied any auditory or visual hallucinations. Patient endorsed wanting to live for their health and family. The patient denied any access to guns or weapons. [employer] spoke with patient's over the phone who ensured that guns/weapons will be safely locked away. patient denied any paranoia and did not endorse any delusions. Patient does have a significant history of substance abuse and was c ounseled on abstaining from all substances including alcohol and marijuana. Patient elected to do outpatient substance use treatment program through their outpatient provider. Patient was also counseled on the medications and need for regular compliance and was encouraged to follow-up with their outpatient appointment for mental health and also for primary care. Prior to discharge a family meeting will be arranged by manager social work to answer any questions and ensure safety upon discharge incuding making sure that guns/weapons are either removed from the home or locked away. Mental status exam: General Appearance: Patient appears to be stated age is alert, pleasant, and cooperative. Patient is in no acute distress and has improved hygiene and grooming Behavior: Patient is calmly seated without any agitated behavior. Speech: Patient's speech is fluent and nonpressured. Mood/Affect: Patient reports their mood is "better", affect is congruent and euthymic. Suicidality/Homicidality: Patient denies having any suicidal or homicidal ideation intent or plan. Perceptions: Patient denies any auditory or visual hallucinations. Though content/process: There is no evidence of any delusional thought content and thought process is linear and goal-directed. More future oriented Memory and concentration: AOX3, grossly intact for the purposes of this session. Can spell "WORLD" backwards correctly. Judgment and insight: improved with guarded prognosis Impression: Suicidal ideations Major depressive disorder without psychotic features Anxiety disorder unspecified Cannabis use disorder mild Adverse reaction to medication Plan: -Continue with discharge today as patient has improved and stabilized psychiatrically and is not currently an imminent threat to themself and/or others. Patient will remain at chronically elevated risk for harm to self and/or others due to their impulsivity and substance abuse. -Continue medications: Cymbalta 30 mg daily for mood/anxiety, Remeron 15 mg nightly for mood/insomnia -Patient was counseled on the need for medication compliance and appropriate follow-up at mental health and also primary care for medical issues. Patient verbalized understanding and agreed. -Social work to help coordinate patients discharge today. also to ensure safe home environment that guns/weapons are either removed from the home or locked away. Social work also to arrange for patients follow up appointments for psychiatric care along with follow up with primary care provider. -Patient counseled on abstaining from recreational drugs and marijuana and alcohol. Was informed/educated on the adverse effects on their physical and mental health. Patient verbally agreed and understood. -Patient was instructed to return to the hospital or seek immediate medical care if their psychiatric or medical symptoms do worsen or reoccur. Allergies Allergy/AdvReac Type Severity Reaction Status Date / Time codeine Allergy Nausea & Verified 08/17/24 06:50 Vomiting Laboratory Results WBC 8.3 k/uL (3.8-10.6) 08/16/24 19:37 RBC 4.56 m/uL (3.80-5.40) 08/16/24 19:37 Hgb 13.2 gm/dL (11.4-16.0) 08/16/24 19:37 Hct 40.1 % (34.0-46.0) 08/16/24 19:37 MCV 87.8 fL (80.0-100.0) 08/16/24 19:37 MCH 28.9 pg (25.0-35.0) 08/16/24 19: MCHC 33.0 g/dL (31.0-37.0) 08/16/24 19:37 RDW 12.2 % (11.5-15.5) 08/16/24 19:37 Plt Count 226 k/uL (150-450) 08/16/24 19:37 MPV 9.7 08/16/24 19:37 Neutrophils % 69 % 08/16/24 19:37 Lymphocytes % 20 % 08/16/24 19:37 Monocytes % 7 % 08/16/24 19:37 Eosinophils % 1 % 08/16/24 19: Basophils % 0 % 08/16/24 19:37 Neutrophils # 5.7 k/uL (1.3-7.7) 08/16/24 19:37 Lymphocytes # 1.7 k/uL (1.0-4.8) 08/16/24 19:37 Monocytes # 0.6 k/uL (0-1.0) 08/16/24 19: Eosinophils # 0.1 k/uL (0-0.7) 08/16/24 19: Basophils # 0.0 k/uL (0-0.2) 08/16/24 19:37 PT 12.7 sec (10.0-12.5) H 08/16/24 20:39 INR 1.2 (<1.2) H 08/16/24 20:39 APTT 24.1 sec (22.0-30.0) 08/16/24 20:39 D-Dimer <0.17 mg/L FEU (<0.60) 08/16/24 20:39 Sodium 137 mmol/L (137-145) 08/16/24 19:37 Potassium 4.3 mmol/L (3.5-5.1) 08/16/24 19:37 Chloride 102 mmol/L (98-107) 08/16/24 19:37 Carbon Dioxide 27 mmol/L (22-30) 08/16/24 19:37 Anion Gap 8 mmol/L 08/16/24 19:37 BUN 12 mg/dL (7-17) 08/16/24 19:37 Creatinine 0.64 mg/dL (0.52-1.04) 08/16/24 19:37 Est GFR (CKD-EPI)AfAm >90 (>60 ml/min/1.73 sqM) 08/16/24 19:37 Est GFR (CKD-EPI)NonAf >90 (>60 ml/min/1.73 sqM) 08/16/24 19:37 Glucose 89 mg/dL (74-99) 08/16/24 19:37 Calcium 9.3 mg/dL (8.4-10.2) 08/16/24 19:37 Total Bilirubin 1.7 mg/dL (0.2-1.3) H 08/16/24 19:37 AST 19 U/L (14-36) 08/16/24 19:37 ALT 13 U/L (4-34) 08/16/24 19:37 Alkaline Phosphatase 51 U/L (38-126) 08/16/24 19:37 Troponin I <0.012 ng/mL (0.000-0.034) 08/16/24 20:39 Total Protein 7.3 g/dL (6.3-8.2) 08/16/24 19:37 Albumin 4.3 g/dL (3.5-5.0) 08/16/24 19:37 Amylase 67 U/L (30-110) 08/16/24 19:37 Lipase 70 U/L (23-300) 08/16/24 19:37 TSH 4.640 mIU/L (0.465-4.680) 08/16/24 19:37 Urine Color Light Yellow 08/16/24 20:23 Urine Appearance Clear (Clear) 08/16/24 20:23 Urine pH 6.0 (5.0-8.0) 08/16/24 20:23 Ur Specific [place] 1.015 (1.001-1.035) 08/16/24 20:23 Urine Protein Negative (Negative) 08/16/24 20:23 Urine Glucose (UA) Negative (Negative) 08/16/24 20:23 Urine Ketones 1+ (Negative) H 08/16/24 20:23 Urine Blood Trace (Negative) H 08/16/24 20:23 Urine Nitrite Negative (Negative) 08/16/24 20:23 Urine Bilirubin Negative (Negative) 08/16/24 20:23 Urine Urobilinogen <2.0 mg/dL (<2.0) 08/16/24 20:23 Ur Leukocyte Esterase Negative (Negative) 08/16/24 20:23 Urine RBC 1 /hpf (0-5) 08/16/24 20:23 Urine WBC 2 /hpf (0-5) 08/16/24 20:23 Ur Squamous Epith Cells 2 /hpf (0-4) 08/16/24 20:23 Urine Bacteria Rare /hpf (None) H 08/16/24 20:23 Urine Mucus Few /hpf (None) H 08/16/24 20:23 Urine HCG, Qual Not Detected (Not Detectd) 08/16/24 20:23 Urine Opiates Screen Not Detected (NotDetected) 08/16/24 20:23 Ur Oxycodone Screen Not Detected (NotDetected) 08/16/24 20:23 Urine Methadone Screen Not Detected (NotDetected) 08/16/24 20:23 Ur Barbiturates Screen Not Detected (NotDetected) 08/16/24 20:23 U Tricyclic Antidepress Not Detected (NotDetected) 08/16/24 20:23 Ur Phencyclidine Scrn Not Detected (NotDetected) 08/16/24 20:23 Ur Amphetamines Screen Not Detected (NotDetected) 08/16/24 20:23 U Methamphetamines Scrn Not Detected (NotDetected) 08/16/24 20:23 U Benzodiazepines Scrn Not Detected (NotDetected) 08/16/24 20:23 Urine Cocaine Screen Not Detected (NotDetected) 08/16/24 20:23 U Marijuana (THC) Screen Detected (NotDetected) H 08/16/24 20:23 SARS-CoV-2 (PCR) Not Detected (Not Detectd) 08/17/24 04:11 Vital Signs Temp 98.4 F 08/22/24 08:08 Pulse 70 08/22/24 08:08 Resp 16 08/22/24 08:08 BP 130/76 08/22/24 08:08 Pulse Ox 99 08/22/24 08:08 FiO2 Intake & Output 08/21/24 08/22/24 08/22/24 18:59 06:59 18:59 Weight 78.7 kg
== END 2024-08-22 12:35 | disposition home or self-care (01) | DRG 881 ==
LOC: EC 18:48 → 3MHU 08-17 05:43
PROVIDERS: ADMIT Psychiatry & Neurology Psychiatry; ATTEND Psychiatry & Neurology Psychiatry
DX: F32.9 Major depressive disorder, single episode, unspecified (principal); R45.851 Suicidal ideations; E06.3 Autoimmune thyroiditis; F12.10 Cannabis abuse, uncomplicated; Z11.52 Encounter for screening for COVID-19; T43.225A Adverse effect of selective serotonin reuptake inhibitors, initial encounter; T50.905A Adverse effect of unspecified drugs, medicaments and biological substances, initial encounter; K21.9 Gastro-esophageal reflux disease without esophagitis; F41.9 Anxiety disorder, unspecified; G47.00 Insomnia, unspecified; Z79.890 Hormone replacement therapy; Z79.899 Other long term (current) drug therapy; Z90.49 Acquired absence of other specified parts of digestive tract; Z88.5 Allergy status to narcotic agent; X58.XXXA Exposure to other specified factors, initial encounter
CPT/HCPCS: 36415; 80053; 80306; 81001; 81025; 82075; 82150; 83690; 84443; 84484; 85025; 85379; 85610; 85730; 87635; 93005; 96361; 96374; 96375; 99285